=== PATIENT | male | born 2000 | race Hispanic/Latino ===

== ENCOUNTER → 2021-06-22 08:30 | Outpatient (CLI) | payer OTHER, MEDICAID, SELFPAY ==
[2021-06-22 09:06] LABS: Add Manual Diff / Slide Review NO; Basophils Absolute Auto 100 /uL (0-100); Basophils Percent Auto 0.8 % (0-2); Eosinophils Absolute Auto 300 /uL (0-450); Eosinophils Percent Auto 2.2 % (2-4); Hemoglobin 13.3 g/dL (13.5-17.5); Lymphocytes Absolute Auto 2100 /uL (1100-4500); Lymphocytes Percent Auto 18.1 % (25-40); Mean Corpuscular HGB Conc 31.7 % (30-36); Mean Corpuscular Hemoglobin 27.2 PG (26-34); Mean Corpuscular Volume 85.8 fL (80-100); Monocytes Absolute Auto 700 /uL (0-900); Monocytes Percent Auto 5.8 % (3-14); Neutrophils Absolute Auto 8600 /uL (1500-7000); Neutrophils Percent Auto 73.1 % (50-75); Platelet Count 320 X10^3/uL (150-400); Red Cell Distribution Width 15.1 % (11.6-14.8); White Blood Cell Count 11.7 X10^3/uL (4.5-11.0)
[2021-06-22 09:44] LABS: Alanine Aminotransferase 52 IU/L (<50); Albumin 3.9 g/dL (3.5-5.0); Albumin Globulin Ratio 1.1 (1.0-2.8); Alkaline Phosphatase 172 U/L (38-126); Aspartate Aminotransferase 50 IU/L (17-59); BUN Creatinine Ratio 23.8 (6-22); Bilirubin Total 0.4 mg/dL (0.2-1.3); Blood Urea Nitrogen 15 mg/dL (9-20); Calcium 9.5 mg/dL (8.4-10.2); Carbon Dioxide 26 mmol/L (22-32); Chloride 94 mmol/L (98-107); Cholesterol 150 mg/dL (140-199); Estimated Glomerular Filt Rate > 60.0 mL/min (>60); Globulin 3.4 g/dL (1.7-4.1); Glucose 466 mg/dL (70-100); HDL Cholesterol 40 mg/dL (40-60); HEMOLYSIS < 15 (0-50); LDL Cholesterol Calculated 53 mg/dL (<100); Potassium 4.6 mmol/L (3.4-5.1); Sodium 130 mmol/L (137-145); Total Protein 7.3 g/dL (6.3-8.2); Triglycerides 283 mg/dL (35-150)
[2021-06-22 09:46] LABS: Hemoglobin A1C% w Est Avg Glu 12.5 % (4.0-6.0)
[2021-06-22 11:37] LABS: TSH w/ Reflex to FT4 2.96 uIU/mL (0.47-4.68)
[2021-06-22 16:00] LABS: Creatinine Urine Random 48.9 mg/dL
[2021-06-22 16:01] LABS: Microalbumin Urine Random < 0.6 mg/dL (0-1.6)
== END ==
PROVIDERS: PCP Family Medicine; Referring Provider Family Medicine; Visit Provider Family Medicine
DX: I10 Essential (primary) hypertension (principal); E11.9 Type 2 diabetes mellitus without complications; F41.8 Other specified anxiety disorders
CPT/HCPCS: 36415; 80053; 80061; 82043; 82570; 83036; 84443; 85025

== ENCOUNTER 2021-07-25 23:33 | Emergency (ER) | payer OTHER, MEDICAID, SELFPAY ==
[2021-07-25 23:37] VITALS: BP 145/82; PULSE 110; RESP 24; TEMP 37; O2SAT 96
--- NOTE | 2021-07-25 23:47 | DI.RAD.S_ITS ---
PROCEDURE: XR ANKLE RT MIN 3V INDICATIONS: fall TECHNIQUE: Three views of the ankle were acquired. COMPARISON: None. FINDINGS: Bones: No acute fractures or dislocations. Ankle mortise is normally aligned. No suspicious bony lesions. Soft tissues: No suspicious soft tissue calcification. Mild soft tissue edema surrounding the ankle. IMPRESSION: No acute osseous abnormality. If clinical suspicion and/or symptoms persist, additional imaging with repeat plain films, or advanced imaging (e.g. CT, MRI) may be helpful for further assessment. Dictated by: Abiel Ngo M.D. on 07/26/2021 at 0:28 Approved by: Abiel Ngo M.D. on 07/26/2021 at 0:29
--- NOTE | 2021-07-25 23:51 | ED.LOWEXIN ---
HPI - Extremity Injury (Lower) General Chief Complaint: Extremity Injury, Lower Stated Complaint: rt ankle pain, fell down stairs Time Seen by Provider: 07/25/21 23:51 Source: patient Mode of arrival: Ambulatory Limitations: no limitations History of Present Illness HPI Narrative: This is a 20-year-old individual transitioning from male to female who goes by the pronouns she/her. Patient has known diabetes, hypertension, RAJAN and mood disorder and autism. Patient was walking down the stairs when they inverted their right ankle causing pain on the outer ankle without obvious immediate swelling and discomfort. Patient states they have been able to ambulate with minimal pain. They still have some pain over the ankle area. They have not appreciated any other skin changes besides bruising and the swelling that began initially. No numbness, tingling or weakness. Patient denies any other injuries. No known drug allergies. Related Data Home Medications Medication Instructions Recorded Confirmed blood sugar diagnostic (FreeStyle 05/14/21 07/19/21 Test) lancets 28 gauge (FreeStyle 05/14/21 07/19/21 Lancets) levomefolate calcium 15 mg tablet 15 mg PO DAILY 05/14/21 07/19/21 (L-Methylfolate) Previous Rx's Medication Instructions Recorded cetirizine 10 mg tablet (All Day 10 mg PO DAILY #90 tab 05/14/21 Allergy (cetirizine)) aripiprazole 15 mg tablet 15 mg PO DAILY #90 tab 07/11/21 estradiol 1 mg tablet (Estrace) 3 mg PO DAILY #180 tab 07/11/21 fluoxetine 40 mg capsule 40 mg PO DAILY #90 cap 07/11/21 lisinopril 10 mg tablet 10 mg PO DAILY #90 tab 07/11/21 metformin 1,000 mg tablet 1,000 mg PO BID #180 tab 07/11/21 oxcarbazepine 300 mg tablet 300 mg PO BID #180 tab 07/11/21 spironolactone 100 mg tablet 100 mg PO BID #180 tab 07/11/21 prazosin 1 mg capsule 1 mg PO BEDTIME #30 cap 07/24/21 Allergies Allergy/AdvReac Type Severity Reaction Status Date / Time No Known Drug Allergies Allergy Verified 07/19/21 13:33 Review of Systems Review of Systems ROS Unobtainable: All systems reviewed & are unremarkable except as noted in HPI and below Patient History Medical History Autism Diabetes mellitus type 2, controlled Excessive daytime sleepiness Hypertension Mixed anxiety and depressive disorder PTSD (post-traumatic stress disorder) Transgender Urinary incontinence, nocturnal enuresis Social History Smoking Status: Never smoker Smoking Status: Never smoker Exam Narrative Exam Narrative: GENERAL: Alert and oriented x three, obese in mild distress. Seated in chair with feet on floor. HEENT: Head normocephalic, atraumatic, EOMI, pupils reactive, face symmetric, moist mucous membranes NECK: Supple, full range of motion CARDIOVASCULAR: Regular rate and rhythm without murmurs, rubs or gallops. RESPIRATORY: Breath sounds equal bilaterally, no wheezes rales or rhonchi. ABDOMEN: Soft, nontender. Normoactive bowel sounds all 4 quadrants. No guarding or rebound, rigidity, no mass : No CVA tenderness EXTREMITIES: Normal range of motion, no clubbing or edema. Neurovascularly intact. Patient is nontender to bony palpation in the ankle, foot or toes. No tenderness of the tibia or fibula. Patient has obvious swelling and ecchymosis over the lateral malleoli and just below. Patient has 2+ pulse with cap refill less than 2 seconds in all 5 toes. Normal sensation throughout with no obvious lacerations or injuries. NEUROLOGICAL: Cranial nerves II through XII grossly intact. Moving all extremities SKIN: Warm, dry, no petechiae, no rashes or lesions other than noted above. Initial Vital Signs Initial Vital Signs: Vital Signs Temperature 98.6 F 07/25/21 23:37 Pulse Rate 110 H 07/25/21 23:37 Respiratory Rate 24 07/25/21 23:37 Blood Pressure 145/82 H 07/25/21 23:37 Pulse Oximetry 96 07/25/21 23:37 Course Orders Ordered: ED Orders 07/25/21 23:47 XR ankle RT min 3V Stat Vital Signs Vital signs: Vital Signs - 8 hr 07/25/21 23:37 Temperature 98.6 F Pulse Rate 110 H Respiratory Rate 24 Blood Pressure 145/82 H Pulse Oximetry 96 MDM - Extremity Injury (Lower) Imaging Data Extremity x-ray #1: My Impression: prelim-is negative. Radiologist's Impression: [address] [address] XRay Report Signed Patient: Marquise Woodard MR#: [id number] : 2000 Acct:[id number] Age/Sex: 20 / M Date of Service: 07/25/21 Loc: ED Accession Number: [id number] ?? Procedure: XR ankle RT min 3V Ordering Provider: Carmen Becerra D.O. PROCEDURE:? XR ANKLE RT MIN 3V ? INDICATIONS:? fall ? TECHNIQUE:? Three views of the ankle were acquired.? ? COMPARISON:? None. ? FINDINGS:? ? Bones:? No acute fractures or dislocations.? Ankle mortise is normally aligned.? No suspicious bony lesions.? ? Soft tissues:? No suspicious soft tissue calcification.? Mild soft tissue edema surrounding the ankle. ? ? IMPRESSION:? No acute osseous abnormality.? If clinical suspicion and/or symptoms persist, additional imaging with repeat plain films, or advanced imaging (e.g. CT, MRI) may be helpful for further assessment. ? ? Dictated by: Abiel Ngo M.D. on 07/26/2021 at 0:28 ? ? Approved by: Abiel Ngo M.D. on 07/26/2021 at 0:29?? MDM Narrative Medical decision making narrative: This is a 20-year-old individual with a right ankle inversion going on the stairs with no clear bony tenderness and able to ambulate but does have significant swelling and ecchymosis inferior to the lateral malleoli. X-ray shows no acute changes. Patient placed in Jeffery wrap. Crutches offered but they prefer to ambulate. Discussed rest. NSAIDs and Tylenol as needed pain and return precautions. Discharge Plan Departure Patient Disposition: Home Clinical Impression: Ankle sprain Qualifiers: Encounter type: initial encounter Laterality: right Instructions: DI for Ankle Sprain Activity Restrictions/Additional Instructions: Follow-up with your physician in the next 7-10 days if you are not having improvement resolution of your symptoms. I believe you have an ankle sprain today but if you did not have improvement arrive increasing pain over the next week repeat imaging would be appropriate 7-10 days to evaluate for any small or occult fractures with the bone start to heal, You may take Tylenol and/or ibuprofen as needed for pain. Keep bandage clean and dry. Elevated affected body part to decrease swelling. OK to use ice pack on the affected body part. Use for 15-20 minutes each time, for 5-6x per day. If you develop worsening pain, numbness, tingling, discoloration of the affected body part, loosen the JEFFERY wrap, and either see your doctor for an urgent re-assessment, or return to the Emergency Department. Return to the Emergency Department for any new or worsening symptoms. Prescriptions: No Action aripiprazole 15 mg tablet 15 mg PO DAILY Qty: 90 RF: 3 estradiol [Estrace] 1 mg tablet 3 mg PO DAILY Qty: 180 RF: 1 fluoxetine 40 mg capsule 40 mg PO DAILY Qty: 90 RF: 7 lisinopril 10 mg tablet 10 mg PO DAILY Qty: 90 RF: 3 oxcarbazepine 300 mg tablet 300 mg PO BID Qty: 180 RF: 3 spironolactone 100 mg tablet 100 mg PO BID Qty: 180 RF: 3 metformin 1,000 mg tablet 1,000 mg PO BID Qty: 180 RF: 3 prazosin 1 mg capsule 1 mg PO BEDTIME Qty: 30 RF: 0 levomefolate calcium [L-Methylfolate] 15 mg tablet 15 mg PO DAILY RF: 0 (DME) lancets [FreeStyle Lancets] 28 gauge misc See Rx Instructions .Route RF: 0 (DME) FreeStyle Test Strip See Rx Instructions .Route RF: 0 cetirizine [All Day Allergy (cetirizine)] 10 mg tablet 10 mg PO DAILY Qty: 90 RF: 3 Referrals: Edmund Chou MD [Primary Care Provider] -
== END 2021-07-26 00:37 | disposition home or self-care (01) ==
PROVIDERS: Emergency Provider Emergency Medicine; PCP Family Medicine
DX: S93.401A Sprain of unspecified ligament of right ankle, initial encounter (principal); X50.1XXA Overexertion from prolonged static or awkward postures, initial encounter
CPT/HCPCS: 73610; 99281; 99283

== ENCOUNTER → 2021-08-28 10:41 | Outpatient (CLI) | payer OTHER, MEDICAID, SELFPAY ==
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
== END ==
PROVIDERS: PCP Family Medicine; Referring Provider Family Medicine; Visit Provider Family Medicine
DX: E11.9 Type 2 diabetes mellitus without complications (principal)
CPT/HCPCS: G0108

== ENCOUNTER → 2021-09-19 10:26 | Outpatient (CLI) | payer OTHER, MEDICAID, SELFPAY ==
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
== END ==
PROVIDERS: PCP Family Medicine; Referring Provider Family Medicine; Visit Provider Family Medicine
DX: E11.9 Type 2 diabetes mellitus without complications (principal); Z71.3 Dietary counseling and surveillance; Z79.84 Long term (current) use of oral hypoglycemic drugs
CPT/HCPCS: G0108

== ENCOUNTER → 2021-10-10 10:25 | Outpatient (CLI) | payer OTHER, MEDICAID, SELFPAY ==
--- NOTE | 2021-10-10 13:28 | DIAB.FU ---
Addendum entered by Milly Montiel 10/25/21 10:56: Tried calling pt for 2 week check in and no answer. VM was full. Pt saw provider this morning. Original Note: Follow-up Diabetes Education Assessment Name: Marquise Woodard ([place]) Date: 10/10/21 Time: 4829-0599j Dx: Type II Diabetes [place] presents today without her mother for our appt. Limited progress in DM education based on social and mental health barriers. [place] reports continued difficulty with getting into a therapy program. Still awaiting PACT program call. Not seeing a therapist currently, and reports suicidal ideation and potential for harming others. States she sleeps to avoid these thoughts. Also reports she would harm herself before harming others. Has called the suicide hotline in the past and found this not helpful. During our visit she reports h/o IP care for mental health, which she found helpful. She does not think she needs IP care at this time, but is open to care OP. Provided her with additional resources, including telehealth [facility] (given her disordered eating). Called [place] after our visit to see if she would like to discuss urges of harm with Dr. Franco's care team. She was not open to this and states she thinks her and her family are moving Oct 17 to . Endorses continued binge/purge behavior. Triggers reported include feeling lonely, mother at work, feeling unloveable. States she does not have friends. Endorses feeling she is struggling with OCD, which impact her disordered eating. Reports intense food cravings which are insatiable. Has not r/s missed appt with [facility]. Physical Activity: No longer walking due to weather. Self-Monitoring Blood Glucose: Not currently checking. Diabetes Medications: Glipizide 5 mg daily Metformin 1000 mg BID Pertinent Labs: 06/2021 HgA1c: 12.5% H Cholesterol: 150 HDL: 40 L LDL: 53 Past Medical History: (Last Updated 08/02/21 @ 20:28 by Aparna Moreno) Allergies (~2001) Asthma (~2002) Autism (~2001) Diabetes mellitus type 2, controlled (~2019) Excessive daytime sleepiness (~2015) Fatigue due to sleep pattern disturbance (~2015) History of placement of ear tubes Tubes in ears multiple times between 5929-6486 History of recurrent ear infection (~2001) History of tonsillectomy and adenoidectomy (~2006) Hypertension (~2019) Insomnia due to medical condition (~2015) Mixed anxiety and depressive disorder Morbid obesity with body mass index (BMI) of 50.0 to 59.9 in adult (Unknown) MRSA (methicillin resistant Staphylococcus aureus) (~2003) Obstructive sleep apnea, adult (~06/2021) Personality disorder (~2017) PTSD (post-traumatic stress disorder) (~2012) Transgender (~2014) Urinary incontinence, nocturnal enuresis (~2001) Intervention: This participant was very receptive. Provided appropriate educational handouts. Discussed the following topics: Resources for therapy and disordered eating Resources for self harm Triggers for binge/purge behaviors Goals: Call PACT program to determine progress on referral Consider calling [facility] for telehealth program if PACT is not an option Reschedule manuel appt Follow-up: SANDIE STRONG follow-up call in two weeks. 1:1 appt in one month. [place] has many barriers to diabetes care. Before she is able to start checking BG and managing DM outside of taking meds, she likely needs to enroll in a therapy program. Currently this SANDIE/[facility] is the only care provider she sees regularly, and mental health of this level is certainly outside scope. She plans to f/u with provider, given that she stays in [place]. Would likely benefit from additional DM meds d/t HgA1c level, but not clear if insulin is appropriate given she has contemplated suicide with medications. Also, not clear how compliant she would be with such a regimen. Unfortunately, given her insurance, other options may be financially difficult for her. Will message provider. Milly Montiel RDN, [facility] Certified Diabetes Care and Middle School Spanish Teacher P: [phone] Thank you for this referral
== END ==
PROVIDERS: PCP Family Medicine; Referring Provider Family Medicine; Visit Provider Family Medicine
DX: E11.9 Type 2 diabetes mellitus without complications (principal); Z79.84 Long term (current) use of oral hypoglycemic drugs
CPT/HCPCS: G0108